=== PATIENT | female | born 1970 | race Caucasian/White ===

== ENCOUNTER 2017-05-13 10:30 | Inpatient (IN) | payer OTHER ==
[~2017-05-13] VITALS: Ht 162.6 cm; Wt 72.6 kg
[~2017-05-13 10:30] MED LIST: CARAFATE1 GM/10 ML; CATAFLAM50 MG PO; CIPRO500 MG PO; CYANOCOBALAMIN; FENOFIBRATE160 MG PO; INTEGRA CAPSUL1 EACH; LEVOXYL137 MCG; LEVOXYL150 MCG; NEURIN; NEURONTIN300 MG PO; PNEU16DI2; PROTONIX40 M1 PO; SYNTHROID150 MCG PO; ZANAFLEX4 M1 PO
[2017-05-22] MEDS ORDERED: GABAPENTIN600 MG PO (07:13)
[2017-05-22] MEDS ORDERED: Mylicon 125MG PO (07:13)
[2017-05-22] MEDS ORDERED: IBUPROFEN800 MG PO (07:13)
[2017-05-22] MEDS ORDERED: POLY119PG PO (07:13)
[2017-05-22] MEDS ORDERED: SULFAMETHOXAZO1 EACH PO (07:18)
== END 2017-05-22 09:11 | DRG 743 ==
LOC: O/R 05-19 05:33 → OB/GYN 05-19 05:33
PROVIDERS: Obstetrics & Gynecology
PROC: 0UT60ZZ Resection of Left Fallopian Tube, Open Approach (ICD-10-PCS; 2017-05-19)
PROC: 0DTU0ZZ Resection of Omentum, Open Approach (ICD-10-PCS; 2017-05-19)
PROC: 0UT90ZZ Resection of Uterus, Open Approach (ICD-10-PCS; principal; 2017-05-19 08:30)
DX: D25.1 Intramural leiomyoma of uterus (principal); N80.0 Endometriosis of uterus; N72 Inflammatory disease of cervix uteri; K58.8 Other irritable bowel syndrome; K21.9 Gastro-esophageal reflux disease without esophagitis; N93.8 Other specified abnormal uterine and vaginal bleeding; E78.4 Other hyperlipidemia; K31.89 Other diseases of stomach and duodenum

== ENCOUNTER 2018-10-10 19:35 | Emergency (ER) | payer OTHER ==
[~2018-10-10] VITALS: Ht 162.6 cm; Wt 74.8 kg
[~2018-10-10 19:35] MED LIST changes: +GABAPENTIN600 MG PO; +IBUPROFEN800 MG PO; +Mylicon 125MG PO; +POLY119PG PO; +SULFAMETHOXAZO1 EACH PO
[2018-10-10] MEDS ORDERED: LEVOXYL137 MCG (20:37)
[2018-10-10] MEDS ORDERED: DICY20TA (20:38)
[2018-10-10] MEDS ORDERED: VITAMIN B-12 IJ (20:39)
[2018-10-11] MEDS ORDERED: DICLOFENAC SOD100 MG PO (04:04)
[2018-10-11] MEDS ORDERED: PERCOCET 5-3251 EACH PO (04:04)
== END 2018-10-11 04:17 | disposition home or self-care (01) ==
LOC: ER 19:35
DX: N83.292 Other ovarian cyst, left side (principal)